=== PATIENT | male | born 2000 | race Caucasian/White ===

== ENCOUNTER 2020-11-27 18:34 | Emergency (ER) | payer OTHER | END 2020-11-27 20:29 | disposition home or self-care (01) | LOC: ERS 18:34 | DX: L03.113 Cellulitis of right upper limb (principal); Z79.899 Other long term (current) drug therapy | CPT/HCPCS: 99283 ==

== ENCOUNTER 2021-11-05 22:43 | Emergency (ER) | payer OTHER ==
[2021-11-05] MEDS ORDERED: Ketorolac Tromethamine 30 MG/ML VIAL ONE (23:31)
[2021-11-05] MEDS ORDERED: Ondansetron PF 4 MG/2 ML Vial ONE (23:31)
== END 2021-11-06 00:34 | disposition home or self-care (01) ==
LOC: ERS 22:43
DX: S06.0X1A Concussion with loss of consciousness of 30 minutes or less, initial encounter (principal); S00.01XA Abrasion of scalp, initial encounter; W52.XXXA Crushed, pushed or stepped on by crowd or human stampede, initial encounter; Y93.61 Activity, american tackle football
CPT/HCPCS: 70450; 72125; 96374; 96375; J1885; J2405